=== PATIENT | male | born 1965 | race African-American/Black ===

== ENCOUNTER 2017-02-16 22:18 | Emergency (ER) | payer OTHER ==
[~2017-02-16] VITALS: Ht 182.9 cm; Wt 95.4 kg
[~2017-02-16 22:18] MED LIST: AMLODIPINE BESY10 MG PO; ATARAX,VISTARIL25 MG PO; CETIRIZINE HCL10 M2 PO; FLEXERIL10 MG PO; FLUTICASONE P15.8 ML BOTH NARES; IBUPROFEN800 MG PO; LIDODERM 5% P1 PATCH TD; LISINOPRIL40 MG PO; NAPROXEN500 MG PO
[2017-02-16] MEDS ORDERED: NORVASC10 MG PO (22:40)
[2017-02-16] MEDS ORDERED: ZESTRIL40 MG PO (22:40)
[2017-02-16] MEDS ORDERED: 24HOUR ALLERGY10 MG PO (22:41)
[2017-02-16] MEDS ORDERED: FLUTICASONE P15.8 ML BOTH NARES (22:41)
[2017-02-17] MEDS ORDERED: VENTOLIN HFA18 GM IH (01:09)
[2017-02-17] MEDS ORDERED: PREDNISONE20 MG PO (01:09)
[2017-02-17] MEDS ORDERED: ZITHROMAX500 MG PO (01:09)
[2017-02-17 01:12] VITALS: BP 158/83
== END 2017-02-17 01:18 | disposition home or self-care (01) ==
LOC: EME 22:18
DX: J40 Bronchitis, not specified as acute or chronic (principal); J02.9 Acute pharyngitis, unspecified; I10 Essential (primary) hypertension
CPT/HCPCS: 94640; 99281; 99284; J7512

== ENCOUNTER 2017-07-19 19:08 | Emergency (ER) | payer OTHER ==
[~2017-07-19] VITALS: Ht 193 cm; Wt 103.3 kg
[~2017-07-19 19:08] MED LIST changes: +24HOUR ALLERGY10 MG PO; +NORVASC10 MG PO; +PREDNISONE20 MG PO; +VENTOLIN HFA18 GM IH; +ZESTRIL40 MG PO; +ZITHROMAX500 MG PO
[2017-07-19] MEDS ORDERED: MOTRIN800 MG PO (22:06)
[2017-07-19] MEDS ORDERED: SKELAXIN800 MG PO (22:06)
[2017-07-19] MEDS ORDERED: AMOXICILLIN875 MG PO (22:06)
[2017-07-19 22:14] VITALS: BP 154/71
== END 2017-07-19 22:16 | disposition home or self-care (01) ==
LOC: EME 19:08
DX: S33.5XXA Sprain of ligaments of lumbar spine, initial encounter (principal); J02.9 Acute pharyngitis, unspecified; X58.XXXA Exposure to other specified factors, initial encounter; Y93.01 Activity, walking, marching and hiking; I10 Essential (primary) hypertension; Z87.891 Personal history of nicotine dependence
CPT/HCPCS: 99281; 99283; J1885

== ENCOUNTER 2017-10-09 21:06 | Emergency (ER) | payer OTHER ==
[~2017-10-09] VITALS: Ht 193 cm; Wt 97.9 kg
[~2017-10-09 21:06] MED LIST changes: +AMOXICILLIN875 MG PO; +MOTRIN800 MG PO; +SKELAXIN800 MG PO
[2017-10-09 21:37] LABS: HEMATOCRIT 43.4 % (38.0-50.0); MCH 28.1 PG (29.0-34.0); MCHC 33.9 G/DL (30.0-36.0); MEAN PLAT.VOLUME 11.8 uM^3 (9.0-12.4); PLATELET COUNT 179 K/uL (156-360); RBC DIS.WIDTH-CV 11.5 % (11.8-14.6); RBC DIS.WIDTH-SD 34.8 % (39-53); RED BLOOD COUNT 5.23 M/uL (4.00-5.50); WHITE BLOOD COUNT 6.5 K/uL (4.1-10.2)
[2017-10-09 21:46] LABS: ADD MIUA? NO; BILIRUBIN NEGATIVE; BLOOD NEGATIVE; COLOR COLORLESS ((YELLOW)); GLUCOSE (STRIP) >=500; KETONES NEGATIVE; LEUKOCYTES NEGATIVE; NITRITE NEGATIVE; PROTEIN (STRIP) NEGATIVE; SPECIFIC GRAVITY 1.022 (1.000-1.030); UCUL ADDED? NO; UROBILINOGEN 0.2 MG/DL (0.2-1.0)
[2017-10-09 21:49] LABS: CHLORIDE 92 mEq/L (99-109); POTASSIUM 4.5 mEq/L (3.7-5.4); SODIUM 127 mEq/L (136-147)
[2017-10-09 21:52] LABS: ANION GAP 11 MEQ/L (2-14)
[2017-10-09 21:53] LABS: TOTAL BILIRUBIN 0.3 mg/dL (0.0-1.0)
[2017-10-09 21:54] LABS: ALKALINE PHOSPHATASE 167 IU/L (3-129)
[2017-10-09 21:55] LABS: GFR ESTIMATE (CALCULATED) 51 mL/min/ (58.99-99999)
[2017-10-09 21:56] LABS: UREA NITROGEN (BUN) 23 mg/dL (9-23)
[2017-10-09 21:58] LABS: LIPASE 61 U/L (1.0-51.0)
[2017-10-09 22:05] LABS: GLUCOSE 796 mg/dL (70-99)
[2017-10-10] MEDS ORDERED: METFORMIN HCL500 MG PO (00:37)
[2017-10-10 01:10] VITALS: BP 137/79
[2017-10-10 09:36] LABS: POINT-OF-CARE METER ID UU13113702
== END 2017-10-10 01:21 | disposition home or self-care (01) ==
LOC: EME 21:06
PROVIDERS: Emergency Medicine
DX: R73.9 Hyperglycemia, unspecified (principal); I10 Essential (primary) hypertension; F41.9 Anxiety disorder, unspecified; Z87.891 Personal history of nicotine dependence
CPT/HCPCS: 80053; 81003; 82948; 83690; 85027; 99281; 99284; J7030

== ENCOUNTER 2017-12-07 15:02 | Emergency (ER) | payer OTHER ==
[~2017-12-07] VITALS: Ht 193 cm; Wt 98.0 kg
[~2017-12-07 15:02] MED LIST changes: +METFORMIN HCL500 MG PO
[2017-12-07 18:15] VITALS: BP 103/58
== END 2017-12-07 18:30 | disposition home or self-care (01) ==
LOC: EME 15:02
DX: J02.0 Streptococcal pharyngitis (principal); E11.9 Type 2 diabetes mellitus without complications; I10 Essential (primary) hypertension; Z87.891 Personal history of nicotine dependence
CPT/HCPCS: 82948; 87651 90; 99281; 99283; J0561